=== PATIENT | female | born 1990 ===

== ENCOUNTER 2021-10-19 15:04 | Inpatient (IN) | payer BC ==
[2021-10-19] MEDS ORDERED: Sodium Chloride 0.9% 10 ML Syringe FLUSH PRN (17:19)
[2021-10-19] MEDS ORDERED: Bupivacaine 0.5% 30 ML SDV ONE (17:29)
[2021-10-19] MEDS ORDERED: Oxytocin/Lactated Ringers 10 UNIT/1,000 ML BAG IV SCH ×2 (17:30→21:31)
[2021-10-19] MEDS ORDERED: Morphine PF 10 MG/10 ML SDV ONE (17:30)
[2021-10-19] MEDS ORDERED: ceFAZolin 2 GM Vial ONE (17:30)
[2021-10-19] MEDS ORDERED: Oxytocin 10 Units/1 ML SDV ONE (17:30)
[2021-10-19] MEDS ORDERED: Lactated Ringers 1,000 ML IV SCH (17:30)
[2021-10-19] MEDS ORDERED: Ondansetron 4 MG/2 ML SDV ONE (17:30)
[2021-10-19] MEDS ORDERED: Ketorolac 30 MG/ML SDV ONE (17:30)
[2021-10-19] MEDS ORDERED: Metoclopramide 10 MG/2 ML SDV IVPUSH ONE (17:45)
[2021-10-19] MEDS ORDERED: Citric Acid/Sodium Citrate Solution 30 ML Cup PO ONE (17:45)
[2021-10-19] MEDS ORDERED: Lidocaine 1% 2 ML ONE (18:04)
[2021-10-19] MEDS ORDERED: Phenylephrine HCl In 0.9% NaCl 1 MG/10 ML Vial ONE (18:23)
[2021-10-19] MEDS ORDERED: Lactated Ringers 1,000 ML ONE (18:59)
[2021-10-19] MEDS ORDERED: Ondansetron 4 MG/2 ML SDV IVPUSH PRN (19:21)
[2021-10-19] MEDS ORDERED: Meperidine 50 MG/ML Vial IVPUSH PRN (19:21)
[2021-10-19] MEDS ORDERED: diphenhydrAMINE 50 MG/ML SDV IVPUSH PRN ×2 (19:21→21:31)
[2021-10-19] MEDS ORDERED: fentaNYL 100 MCG/2 ML SDV IVPUSH PRN (19:21)
[2021-10-19] MEDS ORDERED: Sodium Chloride 0.9% 10 ML Syringe FLUSH SCH (21:00)
[2021-10-19] MEDS ORDERED: Acetaminophen/oxyCODONE 325-5 MG Tab PO PRN (21:31)
[2021-10-19] MEDS ORDERED: Naloxone 0.4 MG/ML SDV IVPUSH PRN (21:31)
[2021-10-19] MEDS ORDERED: Magnesium Hydroxide 400 MG/5 ML Susp 30 ML Cup PO PRN (21:31)
[2021-10-19] MEDS ORDERED: Dextrose 5%-Lactated Ringers 1,000 ML IV SCH (21:31)
[2021-10-19] MEDS ORDERED: ePHEDrine 50 MG/ML SDV IVPUSH PRN (21:31)
[2021-10-20] MEDS ORDERED: Lactated Ringers 1,000 ML IV ONE (00:01)
[2021-10-20] MEDS: Docusate Sodium 100 MG Cap PO SCH ×3 (00:16→21:17)
[2021-10-20] MEDS: Ketorolac 30 MG/ML SDV IVPUSH SCH ×3 (00:18→13:48)
[2021-10-20] MEDS: Prenatal Multivitamin with Calcium/Folic Acid/Iron Tab PO SCH (13:48)
[2021-10-20] MEDS: Ibuprofen 600 MG Tab PO PRN (21:17)
[2021-10-21] MEDS: Ibuprofen 600 MG Tab PO PRN (04:12)
[2021-10-21] MEDS: Prenatal Multivitamin with Calcium/Folic Acid/Iron Tab PO SCH (09:56)
[2021-10-21] MEDS: Docusate Sodium 100 MG Cap PO SCH ×2 (09:57→21:52)
[2021-10-21] MEDS: Acetaminophen/oxyCODONE 325-5 MG Tab PO PRN ×2 (09:57→21:53)
[2021-10-22] MEDS: Docusate Sodium 100 MG Cap PO SCH (08:15)
[2021-10-22] MEDS: Prenatal Multivitamin with Calcium/Folic Acid/Iron Tab PO SCH (08:15)
[2021-10-22] MEDS: Ibuprofen 600 MG Tab PO PRN (08:16)
== END 2021-10-22 18:45 | disposition home or self-care (01) | DRG 540 ==
LOC: JD.OBCHECK 15:04 → JD.OB 15:08 → JD.OBCHECK 17:19 → JD.OB 17:48 → OBSVTOIN 18:28 → JD.OB 18:29
PROVIDERS: ADMIT Obstetrics & Gynecology; ATTEND Obstetrics & Gynecology
PROC: 10D00Z1 Extraction of Products of Conception, Low, Open Approach (ICD-10-PCS; principal; 2021-10-19)
DX: O13.4 Gestational [pregnancy-induced] hypertension without significant proteinuria, complicating childbirth (principal); O99.62 Diseases of the digestive system complicating childbirth; K21.9 Gastro-esophageal reflux disease without esophagitis; O99.214 Obesity complicating childbirth; Z37.0 Single live birth; O36.63X0 Maternal care for excessive fetal growth, third trimester, not applicable or unspecified; Z79.82 Long term (current) use of aspirin; Z3A.38 38 weeks gestation of pregnancy
CPT/HCPCS: 36415; 59025; 76815; 76815-26; 82565; 82570; 83615; 84156; 84450; 84460; 84520; 84550; 85025; 86592; 86850; 86900; 86901; 94762; A9270-GY; J0690; J1885; J2274; J2405; J2590; J2765; J3490; J7120